=== PATIENT | male | born 1945 | race Caucasian/White ===

== ENCOUNTER 2019-03-27 18:28 | Emergency (ER) | payer BC, OTHER ==
[~2019-03-27] VITALS: Ht 177.8 cm; Wt 106.6 kg
[2019-03-27 18:29] VITALS: BP_SYST 142
--- NOTE | 2019-03-27 18:30 | NUR ---
Patient to ER bed 05 to gown for evaluation. Side rails up.
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
--- NOTE | 2019-03-27 19:07 | NUR ---
PATIENT TO ER #5 AT 1830, ERMD EVALUATION AT 1850
[2019-03-27] MEDS: IBUPROFEN 600 MG TABLET PO ONE (19:10)
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
--- NOTE | 2019-03-27 19:50 | NUR ---
Pt back from Radiology, well tolerated
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
--- NOTE | 2019-03-27 20:52 | NUR ---
Sheriff Carter states the Pt's done, and ok with Pt being DC'd
[2019-03-27 20:53] VITALS: BP_SYST 148
== END 2019-03-27 20:53 | disposition home or self-care (01) ==
LOC: SED 18:28
DX: S16.1XXA Strain of muscle, fascia and tendon at neck level, initial encounter (principal); S00.81XA Abrasion of other part of head, initial encounter; E78.00 Pure hypercholesterolemia, unspecified; Y04.2XXA Assault by strike against or bumped into by another person, initial encounter; Y93.89 Activity, other specified; Y92.39 Other specified sports and athletic area as the place of occurrence of the external cause; Y99.8 Other external cause status
CPT/HCPCS: 71045; 72040-TC; 73030; 99283

== ENCOUNTER 2019-03-29 09:50 | Emergency (ER) | payer OTHER, MEDICARE ==
[~2019-03-29] VITALS: Ht 177.8 cm; Wt 106.6 kg
[2019-03-29 10:10] VITALS: BP_SYST 163
--- NOTE | 2019-03-29 10:20 | NUR ---
Patient to ER bed 4 to gown for evaluation. Side rails up. Report given to JAN WHITMORE.
--- NOTE | 2019-03-29 10:37 | NUR ---
ER Dr. Mejia at bedside examining patient.
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
--- NOTE | 2019-03-29 11:00 | NUR ---
Patient to CT via wheel chair with staff
[2019-03-29 12:30] VITALS: BP_SYST 152
--- NOTE | 2019-03-29 12:30 | NUR ---
Patient given written and verbal discharge instructions and verbalizes understanding. ER MD Mejia discussed with patient the results and treatment provided. Patient in stable condition. ID arm band removed. No Rx given. Patient educated on pain management and to follow up with PMD. Pain Scale 0. Opportunity for questions provided and answered. Medication side effect fact sheet provided.
== END 2019-03-29 12:30 | disposition home or self-care (01) ==
LOC: SED 09:50
DX: S00.03XA Contusion of scalp, initial encounter (principal); Y04.0XXA Assault by unarmed brawl or fight, initial encounter; Y93.89 Activity, other specified; Y92.89 Other specified places as the place of occurrence of the external cause; Y99.8 Other external cause status
CPT/HCPCS: 70450-TC; 99284

== ENCOUNTER 2022-01-08 14:38 | Emergency (ER) | payer OTHER, MEDICARE ==
[~2022-01-08] VITALS: Ht 180.3 cm; Wt 77.1 kg
[2022-01-08 14:50] VITALS: BP_SYST 167
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
--- NOTE | 2022-01-08 15:22 | NUR ---
EMT Jamie flushed away debri with normal saline. pt tolerated well. laceration 1cm in length to right thumb. Tourniquet applied to thumb for controlled bleeding per MD order.
[2022-01-08] MEDS ORDERED: MEMA7CAP PO (15:28)
[2022-01-08] MEDS ORDERED: QUET50TA PO (15:28)
[2022-01-08] MEDS ORDERED: DONE10TA44 PO (15:28)
--- NOTE | 2022-01-08 15:30 | NUR ---
ER at bedside examining patient.
[2022-01-08] MEDS ORDERED: LIDOCAINE 1% 10 MG/ML, 20 ML MDV INJ ONE (15:45)
[2022-01-08] MEDS ORDERED: DIPHTH,PERTUSS(ACELL),TET VAC 0.5 ML VIAL (Tdap) I.M. ONE (16:15)
[2022-01-08] MEDS ORDERED: BACITRACIN 1 GM OINT TP ONE ×2 (16:15→16:18)
--- NOTE | 2022-01-08 16:15 | NUR ---
Patient given written and verbal discharge instructions and verbalizes understanding. ER MD discussed with patient the results and treatment provided. Patient in stable condition. ID arm band removed. Opportunity for questions provided and answered. Medication side effect fact sheet provided.
[2022-01-08 17:37] VITALS: BP_SYST 167
== END 2022-01-08 17:37 | disposition home or self-care (01) ==
LOC: SED 14:38
DX: S61.011A Laceration without foreign body of right thumb without damage to nail, initial encounter (principal); I10 Essential (primary) hypertension; Z79.899 Other long term (current) drug therapy; W26.8XXA Contact with other sharp object(s), not elsewhere classified, initial encounter; Y93.89 Activity, other specified; Y92.89 Other specified places as the place of occurrence of the external cause; Y99.9 Unspecified external cause status
CPT/HCPCS: 99282; 90715; 12001; J2001

== ENCOUNTER 2023-06-10 14:36 | Emergency (ER) | payer OTHER, MEDICARE ==
[~2023-06-10] VITALS: Ht 180.3 cm; Wt 74.8 kg
[2023-06-10 14:36] VITALS: PULSE 99; RESP 20; TEMP 98.1; O2SAT 98
[~2023-06-10 14:36] MED LIST: DONE10TA44 PO; MEMA7CAP PO; QUET50TA PO
[2023-06-10 17:03] LABS: ANION GAP 8 (5-15); CARBON DIOXIDE 28 mmol/L (23-29); CHLORIDE 105 mmol/L (98-107); CREATININE 1.32 mg/dL (0.55-1.30); GLUCOSE 113 mg/dL (74-106); POTASSIUM 3.5 mmol/L (3.5-5.1); SODIUM SERUM 141 mmol/L (136-145); UREA NITROGEN, BLOOD 15 mg/dL (8-21)
[2023-06-10 17:08] LABS: CHOLESTEROL 229 mg/dL (<200); HDL CHOLESTEROL 32 mg/dL (>45); SALICYLATE 1 mg/dL (3-30); TRIGLYCERIDES 262 mg/dL (30-150)
[2023-06-10 17:10] LABS: BILIRUBIN,URINE NEGATIVE (NEGATIVE); BLOOD, URINE NEGATIVE (NEGATIVE); CLARITY/URINE CLEAR (CLEAR); COLOR,URINE YELLOW (YELLOW); GLUCOSE,URINE NEGATIVE (NEGATIVE); KETONES,URINE NEGATIVE (NEGATIVE); LEUKOCYTE ESTERASE ,URINE NEGATIVE (NEGATIVE); NITRITE, URINE NEGATIVE (NEGATIVE); PROTEIN URINE NEGATIVE (NEGATIVE); UROBILINOGEN,URINE 0.2 (0.2-1.0)
[2023-06-10 17:12] LABS: HEMOGLOBIN A1C 4.91 % (<5.7)
[2023-06-10 17:24] LABS: UR TRICYCLIC ANTIDEPRESSANTS POSITIVE (NEG <=300)
[2023-06-10 17:25] LABS: BARBITURATE, URINE NEGATIVE (NEG <=200); BENZODIAZEPINE, URINE NEGATIVE (NEG <=150); CANNABINOID, URINE NEGATIVE (NEG <=50); COCAINE, URINE NEGATIVE (NEG <=150); METHAMPHETAMINES SCREEN,URINE NEGATIVE (NEG <=500); OPIATE, URINE NEGATIVE (NEG <=100); PHENCYCLIDINE SCREEN,URINE NEGATIVE (NEG <=25); URINE AMPHETAMINE NEGATIVE (NEG <=500); URINE METHADONE NEGATIVE (NEG <=200); URINE OXYCODONE SCREEN NEGATIVE (NEG <=100)
[2023-06-10 17:30] LABS: ACETAMINOPHEN < 1 ug/mL (1-30); ALCOHOL, BLOOD < 3 mg/dL (<10)
[2023-06-10 17:55] LABS: BASOPHILS % (AUTO) 0.5 % (0.0-2.0); EOSINOPHILS # (AUTO) 0.1 K/uL (0.0-0.4); EOSINOPHILS % (AUTO) 1.1 % (0.0-4.0); HEMATOCRIT 38.6 % (36-54); HEMOGLOBIN 13.2 g/dL (14.0-18.0); LYMPHOCYTES # (AUTO) 1.6 K/uL (1.0-5.5); LYMPHOCYTES % (AUTO) 17.5 % (20.5-51.5); MEAN CORPUSCULAR HEMOGLOBIN 34 pg (27-31); MEAN CORPUSCULAR HGB CONC 34 % (32-36); MEAN CORPUSCULAR VOLUME 99 fL (79.0-98.0); MONOCYTES # (AUTO) 0.9 K/uL (0.0-1.0); MONOCYTES % (AUTO) 9.8 % (1.7-9.3); NEUTROPHILS # (AUTO) 6.6 K/uL (1.8-7.7); NEUTROPHILS % (AUTO) 71.1 % (40.0-70.0); PLATELET COUNT (AUTO) 250 K/uL (130-430); RED CELL DISTRIBUTION WIDTH 14.3 % (9.0-15.0); WHITE BLOOD COUNT (AUTO) 9.2 K/uL (4.8-10.8)
[2023-06-10] MEDS: LORazepam 1 MG TABLET PO ONE (18:24)
[2023-06-10] MEDS: QUEtiapine FUMARATE 25 MG TABLET PO ONE (19:02)
[2023-06-10 19:10] VITALS: BP_SYST 144; PULSE 96; RESP 16; TEMP 97.7; O2SAT 98
== END 2023-06-10 19:10 | disposition home or self-care (01) ==
LOC: SED 14:36
DX: F03.B11 Unspecified dementia, moderate, with agitation (principal); Z79.899 Other long term (current) drug therapy; Z20.822 Contact with and (suspected) exposure to COVID-19
CPT/HCPCS: 99283; 87426; 80061; 80307; 80048; 81001; 83037; 85025; 87081; 36415; 81003; G0480; G0481; G0482